=== PATIENT | female | born 1965 ===

== ENCOUNTER 2016-08-22 05:59 | Day surgery (SDC) | payer OTHER ==
[2016-08-19 08:05] VITALS: BMI 33.3
[2016-08-22] MEDS ORDERED: Propofol 10 mg/ml Inj (20 ML) ONE ×2 (07:50→08:30)
[2016-08-22] MEDS ORDERED: Lidocaine Hydrochloride 5 ML INJ ONE (07:51)
[2016-08-22] MEDS ORDERED: Lactated Ringer's 500 ML IV ONE (08:09)
[2016-08-22] MEDS ORDERED: Lactated Ringer's 500 ML IV SCH (08:15)
[2016-08-22 09:24] VITALS: PULSE 72; RESP 16; TEMP 97.3; O2SAT 98
[2016-08-22 10:30] VITALS: BP 108/60
== END 2016-08-22 10:05 | disposition home or self-care (01) ==
LOC: C.ENDO 05:59
PROVIDERS: ATTEND Internal Medicine
DX: Z12.11 Encounter for screening for malignant neoplasm of colon (principal); K29.70 Gastritis, unspecified, without bleeding; R11.2 Nausea with vomiting, unspecified; R10.10 Upper abdominal pain, unspecified; K21.9 Gastro-esophageal reflux disease without esophagitis
CPT/HCPCS: 43239; 45380; 82948; 88305; J2704; J3010; J7120

== ENCOUNTER 2017-08-13 09:16 | Emergency (ER) | payer OTHER ==
[2017-08-13 09:16] VITALS: BMI 29.9
[2017-08-13 09:27] VITALS: BP 100/64; PULSE 82; RESP 20; TEMP 97.8; O2SAT 100
--- NOTE | 2017-08-13 10:24 | C.PDOC ---
History Of Present Illness 52yo female, with history of diabetes, chronic left foot ulcer, presents to ER for evaluation for worsening foot ulcer. Patient follows up with Dr. Garza for the foot ulcer and was informed by him to come to the ER for further evaluation. Patient denies any fever, chills, new injuries, and offers no other medical complaints. Time Seen by Provider: 08/13/17 10:02 Chief Complaint (Nursing): Abnormal Skin Integrity History Per: Patient History/Exam Limitations: no limitations Onset/Duration Of Symptoms: Days Current Symptoms Are (Timing): Still Present Location Of Injury: Left: Foot Quality Of Symptoms: Painful Additional History Per: Patient Past Medical History Reviewed: Historical Data, Nursing Documentation, Vital Signs Vital Signs: Last Vital Signs Temp 97.8 F 08/13/17 09:24 Pulse 82 08/13/17 09:24 Resp 20 08/13/17 09:24 BP 100/64 08/13/17 09:24 Pulse Ox 100 08/13/17 10:24 - Medical History PMH: Anemia, Asthma, Back Problems, CVA, Diabetes, GERD, HTN, Hypercholesterolemia Denies: Chronic Kidney Disease Surgical History: (x 4) - [facility] Procedures ANESTH INJECT-SPIN CANAL (06/13/13) CENTRAL VENOUS CATHETER PLACEMENT WITH GUIDANCE (12/15/13) EXC LES SOFT TISSUE NEC (10/01/12) EXCIS DEBRIDE OF WOUND, INFECT, OR BURN (02/24/13) INJECT STEROID (06/13/13) INJECT/INFUSE NEC (11/28/13) LUMBOSAC SPINE X-RAY NEC (06/13/13) NONEXCIS DEBRID OF WOUND, INFECT, OR BURN (05/18/13) PART OSTECT-METATAR/TAR (11/27/12) PHYSICAL THERAPY NEC (10/01/12) SPINAL CANAL INJECT NEC (06/13/13) Family History: States: Stroke, CAD, Diabetes, Hypertension - Social History Hx Tobacco Use: No Hx Alcohol Use: No Hx Substance Use: No - Immunization History Hx Tetanus Toxoid Vaccination: Yes Hx Influenza Vaccination: Yes Hx Pneumococcal Vaccination: Yes Review Of Systems Except As Marked, All Systems Reviewed And Found Negative. Constitutional: Negative for: Fever, Chills Musculoskeletal: Positive for: Foot Pain (ulcer on left foot ) Physical Exam - Physical Exam Appears: Non-toxic, No Acute Distress Skin: Warm, Dry Head: Normacephalic Eye(s): bilateral: Normal Inspection Cardiovascular: Rhythm Regular Respiratory: Normal Breath Sounds Extremity: Other (ulcer to plantar aspect of left foot; partially evaluated as patient refused to remove dressing) Pulses: Left Dorsalis Pedis: Normal, Right Dorsalis Pedis: Normal ED Course And Treatment O2 Sat by Pulse Oximetry: 100 (RA) Pulse Ox Interpretation: Normal Medical Decision Making Medical Decision Making: Impression: Foot ulcer Plan: -- Labs -- EKG -- XR Left foot progress: 1010 Podiatry resident paged [phone] Nurse reports while attempting to examine the patient's foot, the patient states she did not like being in a hallway bed and does not want to be treated. Patient proceeded to leave ER prior to treatment completed. Disposition - Disposition Disposition: ELOPEMENT - ER ONLY Disposition Time: 10:24 Condition: STABLE Forms: [facility] ([place]) - Clinical Impression Clinical Impression: Skin ulcer - Scribe Statement The provider has reviewed the documentation as recorded by the Scribe (Maine Navarrete) Provider Attestation: All medical record entries made by the Kaitlinibe were at my direction and personally dictated by me. I have reviewed the chart and agree that the record accurately reflects my personal performance of the history, physical exam, medical decision making, and the department course for this patient. I have also personally directed, reviewed, and agree with the discharge instructions and disposition.
--- NOTE | 2017-08-13 13:02 | CP.PCM.CON ---
History of Present Illness - History of Present Illness History of Present Illness: POdiatry Consult NOte- Dr. Garza 51 year old female with PMH of IDDM, hypercholesterolemia, asthma seen in the ED for pain of left chronic ulceration at 5th metatarsal base with increase drainage and smell. Patient is known to Dr. Garza. Was seen and evaluated by Dr. Garza in wound care clinic in which he told her to go to the ER for further evaluation. Reports she has had this ulceration for over 3 years. She reports had this ulceration from walking 10 miles in her shoes. Never healed every since. She rates her pain 9/10 and describe the pain as a throbbing pain at the area of the ulcer. Worse with ambulation. She denies n/v/sob/cp/chills or f at this moment. PMH: Anemia, Asthma, Back Problems, CVA, Diabetes, GERD, Hypercholesterolemia PSH: 4 C-sections SH: smokes 5 cigs/day for 35 years FH: Stroke, CAD, Diabetes, Hypertension Allergies: NKDA Medications: see list Past Patient History - Infectious Disease Hx of Infectious Diseases: None - Past Medical History & Family History Past Medical History?: Yes - Past Social History Smoking Status: Light Smoker < 10 Cigarettes Daily - CARDIAC Hx Hypercholesterolemia: Yes Hx Hypertension: Yes - PULMONARY Hx Asthma: Yes - NEUROLOGICAL Hx Neurological Disorder: Yes HX Cerebrovascular Accident: Yes - HEENT Hx HEENT Problems: No - RENAL Hx Chronic Kidney Disease: No - ENDOCRINE/METABOLIC Hx Endocrine Disorders: Yes Hx Diabetes Mellitus Type 2: Yes (w/neuropathy) - HEMATOLOGICAL/ONCOLOGICAL Hx Anemia: Yes - INTEGUMENTARY Hx Dermatological Problems: No - MUSCULOSKELETAL/RHEUMATOLOGICAL Hx Musculoskeletal Disorders: Yes Hx Back Pain: Yes (back problems) Hx Falls: No Hx Herniated Disk: Yes Other/Comment: chronic left foot ulcer/multiple ulceration/osteomyelitis - GASTROINTESTINAL Hx Gastrointestinal Disorders: Yes Hx Gastroesophageal Reflux: Yes (GERD) - GENITOURINARY/GYNECOLOGICAL Hx Genitourinary Disorders: No - PSYCHIATRIC Hx Substance Use: No - SURGICAL HISTORY Hx Surgeries: Yes Hx Section: Yes (x4) Hx Orthopedic Surgery: Yes (AMPUTATION OF TOES RIGHT FOOT) Other/Comment: left 5th toe amputation(1999) - ANESTHESIA Hx Anesthesia: Yes Hx Anesthesia Reactions: Yes (VOMITING) Hx Malignant Hyperthermia: No Meds Allergies/Adverse Reactions: Allergies Allergy/AdvReac Type Severity Reaction Status Date / Time vancomycin Allergy RASH Verified 08/12/17 12:06 Physical Exam - Constitutional Appears: Well, Non-toxic, No Acute Distress - Extremities Exam Extremities exam: Negative for: calf tenderness Additional comments: Left lower extremity exam DERM: Open ulceration to plantar lateral aspect of left foot measuring 3 cm x 3 cm x 2 cm with wound base mixture of granular and fibrotic tissue, probe to bone , mild serous drainage noted. No active purulent drainage noted from the wound. Severe hyperkeratotic macerated wound edges. Malodor present. No undermining, no tunneling, no abscess, no fluctanance, no streaking appreciated. Mild periwound erythema noted. VASC: Palpable DP and PT at 1/4 bilaterally. PROTECTION OFFICER less than 3 seconds to all existing digits, temperature gradient WNL ORTHO: Severe pain on palpation to the ulceration to Left foot NEURO: Gross sensation diminished - Neurological Exam Neurological exam: Alert, Oriented x3 Results - Vital Signs Recent Vital Signs: Last Vital Signs Temp 97.8 F 08/13/17 09:24 Pulse 82 08/13/17 09:24 Resp 20 08/13/17 09:24 BP 100/64 08/13/17 09:24 Pulse Ox 100 08/13/17 11:08 Assessment & Plan - Assessment and Plan (Free Text) Assessment: 51 yo female with open chronic non-healing ulceration to plantar lateral aspect of Left foot at the level of 5th metatarsal base 2/2 to DM and pressure Plan: Patient was seen and evaluated Plan discussed in details with attending Dr. Garza. Charts, labs, and vitals reviewed (WBC=7.7, afebrile) Wound culture taken-pending results X-rays ordered- pending results Will order MRI for left foot once on floors Ulceration was cleansed with saline + betadine mixture in copious amounts, dressed with wet to dry saline dressing, dsd, abd, and kerlix. Mupricin ordered. Will change with mupricin when on floors. Will continue to f/u on floors. Thank you for the consult.
== END 2017-08-13 10:10 | disposition left against medical advice (07) ==
LOC: C.ER 09:16
DX: E11.621 Type 2 diabetes mellitus with foot ulcer (principal); L97.529 Non-pressure chronic ulcer of other part of left foot with unspecified severity